=== PATIENT | female | born 1955 | race Caucasian/White ===

== ENCOUNTER 2017-07-06 10:16 | Emergency (ER) | payer OTHER ==
[~2017-07-06] VITALS: Ht 172.7 cm; Wt 81.7 kg
[~2017-07-06 10:16] MED LIST: ASPI325EC PO; DIGO.125 PO; LEVSOD100 PO; METO50 PO; MYCO250 PO; OMEP40CA12 PO; PARO20 PO; PRED5 PO; TRAZ50 PO; VALS80 PO
[2017-07-06] MEDS ORDERED: XARELTO20 MG PO (11:37)
[2017-07-06] MEDS ORDERED: ATOR20 PO (11:37)
[2017-07-06 11:47] LABS: BASOPHILS ABSOLUTE AUTO 0.03 K/mm3 (0.00-0.23); BASOPHILS PERCENT AUTO 0 % (0-2); EOSINOPHILS ABSOLUTE AUTO 0.03 K/mm3 (0.00-0.68); EOSINOPHILS PERCENT AUTO 0 % (0-6); Hematocrit 40.6 % (33.0-51.0); Hemoglobin 13.2 g/dL (11.5-16.0); IMMATURE GRAN ABSOLUTE AUTO 0.02 K/mm3 (0.00-0.10); IMMATURE GRAN PERCENT AUTO 0 % (0-1); LYMPHOCYTES PERCENT AUTO 16 % (21-46); MONOCYTES ABSOLUTE AUTO 0.68 K/mm3 (0.16-1.47); MONOCYTES PERCENT AUTO 10 % (4-13); Mean Corpuscular HGB 29.7 pg (26.0-34.0); Mean Corpuscular HGB Conc 32.5 g/dL (31.5-36.5); Mean Corpuscular Volume 91 fL (80-100); Mean Platelet Volume 11.9 fL (9.1-12.4); NEUTROPHILS ABSOLUTE AUTO 5.21 K/mm3 (1.96-9.15); NEUTROPHILS PERCENT AUTO 74 % (41-73); Platelet Count 172 K/mm3 (150-400); RDW Coefficient Variation 13.1 % (11.7-14.2); Red Blood Cell Count 4.44 M/mm3 (3.80-5.20); White Blood Cell Count 7.07 K/mm3 (4.00-11.30)
[2017-07-06 11:59] LABS: International Normalized Ratio 1.14; Prothrombin Time Results 11.9 Sec (9.7-11.5)
[2017-07-06 12:08] LABS: Alanine Aminotransfer (ALT/SGP 12 U/L (12-78); Albumin, Blood 3.6 g/dL (3.4-5.0); Alk Phos 55 U/L (50-136); Anion Gap 9 mmol/L (6-16); Aspartate Aminotrans (AST/SGOT 5 U/L (12-37); Bilirubin, Total 0.5 mg/dL (0.1-1.0); Blood Urea Nitrogen 10 mg/dL (8-24); Bun/Creatinine Ratio 11.7 (12.0-20.0); CO2, Blood 23 mmol/L (21-32); Calcium, Blood 8.9 mg/dL (8.5-10.1); Chloride, Blood 110 mmol/L (98-108); Creatinine, Blood 0.86 mg/dL (0.40-1.00); Globulin, Blood 3.7 g/dL (2.2-4.0); Glomerular Filtration Rate >60 (60-); Glucose, Blood 101 mg/dL (70-99); Potassium, Blood 3.8 mmol/L (3.5-5.5); Sodium, Blood 142 mmol/L (136-145); Total Protein, Blood 7.3 g/dL (6.4-8.2)
[2017-08-10] MEDS ORDERED: Flecainide Acet50 MG PO (09:29)
== END 2017-07-06 12:23 | disposition short-term general hospital (02) ==
LOC: ER 10:16
PROVIDERS: Emergency Medicine
DX: S06.5X9A Traumatic subdural hemorrhage with loss of consciousness of unspecified duration, initial encounter (principal); I77.89 Other specified disorders of arteries and arterioles; Z79.899 Other long term (current) drug therapy; Z79.82 Long term (current) use of aspirin; K21.9 Gastro-esophageal reflux disease without esophagitis; W19.XXXA Unspecified fall, initial encounter
CPT/HCPCS: 36415; 70450; 80053; 85025; 85610; 85730; 93005; 93010; 96365; 99285; J1953

== ENCOUNTER → 2017-08-05 | Outpatient (CLI) | payer OTHER ==
[~2017-08-05] MED LIST changes: +ATOR20 PO; +Flecainide Acet50 MG PO; +XARELTO20 MG PO
== END | disposition home or self-care (01) ==
LOC: LAB 13:36 → LAB SHORT 13:36
DX: R30.0 Dysuria (principal)
CPT/HCPCS: 87077; 87086; 87186

== ENCOUNTER 2017-10-10 11:03 | Emergency (ER) | payer OTHER ==
[~2017-10-10] VITALS: Ht 165.1 cm; Wt 68.0 kg
[2017-10-10] MEDS ORDERED: ZADITOR5 ML LEFTEYE (11:32)
== END 2017-10-10 11:51 | disposition home or self-care (01) ==
LOC: ER 11:03
DX: H10.12 Acute atopic conjunctivitis, left eye (principal); I48.91 Unspecified atrial fibrillation; K21.9 Gastro-esophageal reflux disease without esophagitis; Z87.891 Personal history of nicotine dependence; Z88.8 Allergy status to other drugs, medicaments and biological substances; Z79.899 Other long term (current) drug therapy
CPT/HCPCS: 99282

== ENCOUNTER 2019-01-26 15:04 | Observation (INO) | payer MEDICARE ==
[~2019-01-26] VITALS: Ht 172.7 cm; Wt 85.5 kg
[~2019-01-26 15:04] MED LIST changes: +ZADITOR5 ML LEFTEYE
[2019-01-26 15:50] LABS: BASOPHILS ABSOLUTE AUTO 0.07 K/mm3 (0.00-0.23); BASOPHILS PERCENT AUTO 1 % (0-2); EOSINOPHILS ABSOLUTE AUTO 0.04 K/mm3 (0.00-0.68); EOSINOPHILS PERCENT AUTO 1 % (0-6); Hematocrit 44.2 % (33.0-51.0); Hemoglobin 14.4 g/dL (11.5-16.0); IMMATURE GRAN ABSOLUTE AUTO 0.02 K/mm3 (0.00-0.10); IMMATURE GRAN PERCENT AUTO 0 % (0-1); LYMPHOCYTES ABSOLUTE AUTO 1.42 K/mm3 (0.84-5.20); LYMPHOCYTES PERCENT AUTO 17 % (21-46); MONOCYTES PERCENT AUTO 8 % (4-13); Mean Corpuscular HGB 31.2 pg (26.0-34.0); Mean Corpuscular HGB Conc 32.6 g/dL (31.5-36.5); Mean Corpuscular Volume 96 fL (80-100); Mean Platelet Volume 11.8 fL (9.1-12.4); NEUTROPHILS ABSOLUTE AUTO 6.04 K/mm3 (1.96-9.15); NEUTROPHILS PERCENT AUTO 73 % (41-73); Platelet Count 201 K/mm3 (150-400); RDW Coefficient Variation 13.1 % (11.7-14.2); RDW Standard Deviation 46.4 fL (35.1-46.3); Red Blood Cell Count 4.62 M/mm3 (3.80-5.20); White Blood Cell Count 8.29 K/mm3 (4.00-11.30)
[2019-01-26 16:06] LABS: Alanine Aminotransfer (ALT/SGP 16 U/L (12-78); Albumin, Blood 3.9 g/dL (3.4-5.0); Albumin/Globulin Ratio 1.2 (0.8-1.8); Alk Phos 54 U/L (50-136); Anion Gap 7 mmol/L (6-16); Aspartate Aminotrans (AST/SGOT 18 U/L (12-37); Bilirubin, Total 0.7 mg/dL (0.1-1.0); Blood Urea Nitrogen 20 mg/dL (8-24); CO2, Blood 24 mmol/L (21-32); Calcium, Blood 8.8 mg/dL (8.5-10.1); Chloride, Blood 109 mmol/L (98-108); Globulin, Blood 3.3 g/dL (2.2-4.0); Glomerular Filtration Rate 59 (60-); Glucose, Blood 95 mg/dL (70-99); Potassium, Blood 3.5 mmol/L (3.5-5.5); Sodium, Blood 140 mmol/L (136-145); Total Protein, Blood 7.2 g/dL (6.4-8.2); Troponin I <0.015 ng/mL (0.000-0.040)
[2019-01-26] MEDS ORDERED: ELIQUIS5 MG PO (20:59)
[2019-01-26] MEDS ORDERED: Tambocor100 MG (20:59)
[2019-01-26] MEDS ORDERED: TELM80 PO (21:00)
[2019-01-26] MEDS ORDERED: MYCO250 PO (21:00)
[2019-01-26] MEDS ORDERED: LEVSOD100 PO (21:00)
[2019-01-26] MEDS ORDERED: METO25ER (21:00)
[2019-01-26] MEDS ORDERED: ALPR.25 PO (21:47)
[2019-01-26] MEDS ORDERED: METOPROLOL SUCC25 MG PO (21:48)
--- NOTE | 2019-01-26 21:48 | NUR ---
RECIEVED REPORT FROM ANDRE BALTAZAR. PER REPORT, PT TOOK PM HOME MEDS ALREADY.
--- NOTE | 2019-01-26 22:15 | NUR ---
ADMISSION NOTE PT ARRIVED TO UNIT VIA STRETCHER, AMBULATES INDEPENDENTLY TO BED. PT IS A&OX4. REPORTS CHEST PAIN A BURNING SENSATION, STATES IT IS MORE LIKE REFLUX. TELE IN PLACE; SINUS [place] AT 49. PT REPORTS SHE NORMALLY RUNS IN THE 40-60s. ASYMPTOMATIC. ASSUMING CARE OF PT.
--- NOTE | 2019-01-27 04:56 | NUR ---
SHIFT SUMMARY PT REPORTS CP IS MORE LIKE A BURNING FEELING SIMILAR TO REFLUX, SPECIFICALLY LOCATED TO THE L CHEST AND OCCASIONALLY TRAVELS TO THE L ARM/JAW. TELE IN PLACE; PT SINUS KIMBER[place] IN THE 40s. PT STATES THIS NORMAL FOR HER, ASYMPTOMATIC. MD AWARE. INDEPEDENT IN RM. TROPONINS NEG. DENIES N/V/D. REPORTS CP THIS AM HAS SIGNFICANTLY IMPROVED. WILL CONT TO MONITOR AND PROVIDE CARE UNTIL PRESUMED BY ONCOMING RN.
[2019-01-27] MEDS ORDERED: LOW DOSE ASPIRI81 MG PO (10:21)
[2019-01-27] MEDS ORDERED: ATOR40TA (10:22)
--- NOTE | 2019-01-27 11:37 | NUR ---
DISCHARGE PT DISCHARGED TO HOME. THIS RN EXPLAINED DISCHARGE INSTRUCTIONS AND MEDICATIONS TO PT AND SHE REPORTS SHE UNDERSTANDS. MEDICATIONS FAXED TO [facility]. IV REMOVED WITHOUT DIFFICULTY. PT INDEPENDENT TO PRIVATE VEHICLE. PT'S BELONGINGS WITH PT AND SPOUSE.
== END 2019-01-27 11:20 | disposition home or self-care (01) ==
LOC: ER 15:04 → MEDS 21:02 → ENPENDDIS 01-27 10:35 → MEDS 01-27 11:20
PROVIDERS: Physician Assistant; ADMIT Hospitalist
DX: R07.9 Chest pain, unspecified (principal); I48.0 Paroxysmal atrial fibrillation; I10 Essential (primary) hypertension; E78.5 Hyperlipidemia, unspecified; E03.9 Hypothyroidism, unspecified; Z87.891 Personal history of nicotine dependence; Z88.8 Allergy status to other drugs, medicaments and biological substances; Z79.899 Other long term (current) drug therapy; Z79.02 Long term (current) use of antithrombotics/antiplatelets
CPT/HCPCS: 36415; 71046; 80053; 84484; 85025; 93005; 93010; 99285-25; G0378; J7517

== ENCOUNTER → 2020-06-21 | Outpatient (CLI) | payer MEDICARE, BC ==
[~2020-06-21] MED LIST changes: +ALPR.25 PO; +ATOR40TA; +ELIQUIS5 MG PO; +LOW DOSE ASPIRI81 MG PO; +METO25ER; +METOPROLOL SUCC25 MG PO; +TELM80 PO; +Tambocor100 MG
[2020-06-21 19:33] LABS: BASOPHILS ABSOLUTE AUTO 0.07 K/mm3 (0.00-0.23); BASOPHILS PERCENT AUTO 1 % (0-2); EOSINOPHILS ABSOLUTE AUTO 0.06 K/mm3 (0.00-0.68); EOSINOPHILS PERCENT AUTO 1 % (0-6); Hematocrit 42.4 % (33.0-51.0); Hemoglobin 13.8 g/dL (11.5-16.0); IMMATURE GRAN ABSOLUTE AUTO 0.01 K/mm3 (0.00-0.10); IMMATURE GRAN PERCENT AUTO 0 % (0-1); LYMPHOCYTES ABSOLUTE AUTO 1.48 K/mm3 (0.84-5.20); LYMPHOCYTES PERCENT AUTO 22 % (21-46); MONOCYTES ABSOLUTE AUTO 0.89 K/mm3 (0.16-1.47); MONOCYTES PERCENT AUTO 13 % (4-13); Mean Corpuscular HGB 30.9 pg (26.0-34.0); Mean Corpuscular HGB Conc 32.5 g/dL (31.5-36.5); Mean Corpuscular Volume 95 fL (80-100); Mean Platelet Volume 12.6 fL (9.1-12.4); NEUTROPHILS ABSOLUTE AUTO 4.27 K/mm3 (1.96-9.15); NEUTROPHILS PERCENT AUTO 63 % (41-73); Platelet Count 203 K/mm3 (150-400); RDW Coefficient Variation 13.3 % (11.7-14.2); RDW Standard Deviation 46.4 fL (35.1-46.3); Red Blood Cell Count 4.47 M/mm3 (3.80-5.20); White Blood Cell Count 6.78 K/mm3 (4.00-11.30)
== END | disposition home or self-care (01) ==
LOC: LAB SHORT 18:44 → PLD 18:44
PROVIDERS: Hospitalist
DX: R19.5 Other fecal abnormalities (principal)
CPT/HCPCS: 85025

== ENCOUNTER → 2020-11-05 | Outpatient (CLI) | payer MEDICARE, BC | END | disposition home or self-care (01) | LOC: LAB SHORT 17:20 → LAB 17:20 | DX: R68.84 Jaw pain (principal) | CPT/HCPCS: 85651 ==

== ENCOUNTER → 2021-10-15 | Outpatient (CLI) | payer MEDICARE, BC ==
[2021-10-15 17:48] LABS: BASOPHILS ABSOLUTE AUTO 0.06 K/mm3 (0.00-0.23); BASOPHILS PERCENT AUTO 1 % (0-2); EOSINOPHILS ABSOLUTE AUTO 0.06 K/mm3 (0.00-0.68); EOSINOPHILS PERCENT AUTO 1 % (0-6); Hematocrit 37.5 % (33.0-51.0); Hemoglobin 11.8 g/dL (11.5-16.0); IMMATURE GRAN ABSOLUTE AUTO 0.01 K/mm3 (0.00-0.10); IMMATURE GRAN PERCENT AUTO 0 % (0-1); LYMPHOCYTES ABSOLUTE AUTO 1.07 K/mm3 (0.84-5.20); LYMPHOCYTES PERCENT AUTO 16 % (21-46); MONOCYTES ABSOLUTE AUTO 0.81 K/mm3 (0.16-1.47); MONOCYTES PERCENT AUTO 12 % (4-13); Mean Corpuscular HGB Conc 31.5 g/dL (31.5-36.5); Mean Corpuscular Volume 98 fL (80-100); NEUTROPHILS PERCENT AUTO 69 % (41-73); Platelet Count 308 K/mm3 (150-400); RDW Coefficient Variation 14.3 % (11.7-14.2); RDW Standard Deviation 51.6 fL (35.1-46.3); Red Blood Cell Count 3.81 M/mm3 (3.80-5.20); White Blood Cell Count 6.51 K/mm3 (4.00-11.30)
[2021-10-15 18:21] LABS: Albumin, Blood 3.4 g/dL (3.4-5.0); Albumin/Globulin Ratio 1.1 (0.8-1.8); Bilirubin, Total 0.3 mg/dL (0.1-1.0); Bun/Creatinine Ratio 18.5 (12.0-20.0); Calcium, Blood 8.9 mg/dL (8.5-10.1); Creatinine, Blood 1.08 mg/dL (0.40-1.00); Globulin, Blood 3.2 g/dL (2.2-4.0); Thyroid Stimulating Hormone 4.57 uIU/mL (0.360-4.800); Total Protein, Blood 6.6 g/dL (6.4-8.2)
== END | disposition home or self-care (01) ==
LOC: LAB 15:10 → LAB SHORT 15:10
PROVIDERS: Hospitalist
DX: R51.9 Headache, unspecified (principal); E03.9 Hypothyroidism, unspecified
CPT/HCPCS: 80053; 84443; 85025; 85651

== ENCOUNTER → 2022-05-01 | Outpatient (CLI) | payer MEDICARE, BC ==
[2022-05-01 19:11] LABS: Free Thyroxine 1.14 ng/dL (0.70-1.60)
[2022-05-01 19:14] LABS: Thyroid Stimulating Hormone 6.8 uIU/mL (0.360-4.800); Triiodothyronine, Free 2.18 pg/mL (2.18-3.98)
== END | disposition home or self-care (01) ==
LOC: LAB SHORT 11:00
PROVIDERS: Hospitalist
DX: E03.9 Hypothyroidism, unspecified (principal)
CPT/HCPCS: 84439; 84443; 84481

== ENCOUNTER 2022-12-18 15:28 | Emergency (ER) | payer MEDICARE, BC ==
[~2022-12-18] VITALS: Ht 172.7 cm; Wt 81.7 kg
[2022-12-18 16:01] VITALS: BP 150/103
== END 2022-12-18 16:44 | disposition left against medical advice (07) ==
LOC: ER 15:28
DX: R10.84 Generalized abdominal pain (principal); K59.00 Constipation, unspecified; Z53.29 Procedure and treatment not carried out because of patient's decision for other reasons; K21.9 Gastro-esophageal reflux disease without esophagitis; I48.91 Unspecified atrial fibrillation; I10 Essential (primary) hypertension; N18.9 Chronic kidney disease, unspecified; D89.89 Other specified disorders involving the immune mechanism, not elsewhere classified; Z87.891 Personal history of nicotine dependence; Z88.8 Allergy status to other drugs, medicaments and biological substances; Z79.899 Other long term (current) drug therapy; Z79.01 Long term (current) use of anticoagulants
CPT/HCPCS: 99281; A9270

== ENCOUNTER → 2023-08-14 | Outpatient (CLI) | payer MEDICARE, BC ==
[2023-08-14 15:28] LABS: BASOPHILS ABSOLUTE AUTO 0.07 K/mm3 (0.00-0.23); BASOPHILS PERCENT AUTO 2 % (0-2); EOSINOPHILS ABSOLUTE AUTO 0.08 K/mm3 (0.00-0.68); EOSINOPHILS PERCENT AUTO 2 % (0-6); Hematocrit 45.8 % (33.0-51.0); Hemoglobin 14.7 g/dL (11.5-16.0); IMMATURE GRAN ABSOLUTE AUTO 0.01 K/mm3 (0.00-0.10); IMMATURE GRAN PERCENT AUTO 0 % (0-1); LYMPHOCYTES ABSOLUTE AUTO 0.86 K/mm3 (0.84-5.20); LYMPHOCYTES PERCENT AUTO 21 % (21-46); MONOCYTES ABSOLUTE AUTO 0.43 K/mm3 (0.16-1.47); MONOCYTES PERCENT AUTO 10 % (4-13); Mean Corpuscular HGB Conc 32.1 g/dL (31.5-36.5); Mean Corpuscular Volume 97 fL (80-100); NEUTROPHILS ABSOLUTE AUTO 2.73 K/mm3 (1.96-9.15); NEUTROPHILS PERCENT AUTO 65 % (41-73); Platelet Count 248 K/mm3 (150-400); RDW Coefficient Variation 13.2 % (11.7-14.2); RDW Standard Deviation 47.2 fL (35.1-46.3); Red Blood Cell Count 4.74 M/mm3 (3.80-5.20); White Blood Cell Count 4.18 K/mm3 (4.00-11.30)
[2023-08-14 15:51] LABS: Free Thyroxine 1.12 ng/dL (0.70-1.60)
[2023-08-14 15:52] LABS: Bun/Creatinine Ratio 23.3 (12.0-20.0); Calcium, Blood 9.3 mg/dL (8.5-10.1); Creatinine, Blood 1.03 mg/dL (0.40-1.00); Potassium, Blood 4.3 mmol/L (3.5-5.5); Thyroid Stimulating Hormone 2.54 uIU/mL (0.360-4.800)
== END | disposition home or self-care (01) ==
LOC: LAB SHORT 14:04 → LAB 14:04
PROVIDERS: Hospitalist
DX: N18.31 Chronic kidney disease, stage 3a (principal); E03.9 Hypothyroidism, unspecified
CPT/HCPCS: 80048; 83970; 84439; 84443; 85025

== ENCOUNTER 2024-01-19 17:27 | Emergency (ER) | payer MEDICARE, BC ==
[~2024-01-19] VITALS: Ht 172.7 cm; Wt 85.3 kg
[2024-01-19] MEDS ORDERED: Ondansetron HCl 2 MG / ML 2ML Vial IV ONE (17:35)
[2024-01-19] MEDS ORDERED: Ketorolac Tromethamine 15mg Vial IV ONE (17:35)
[2024-01-19 17:57] LABS: BASOPHILS ABSOLUTE AUTO 0.03 K/mm3 (0.00-0.23); BASOPHILS PERCENT AUTO 0 % (0-2); EOSINOPHILS PERCENT AUTO 0 % (0-6); Hemoglobin 13.9 g/dL (11.5-16.0); IMMATURE GRAN ABSOLUTE AUTO 0.02 K/mm3 (0.00-0.10); IMMATURE GRAN PERCENT AUTO 0 % (0-1); LYMPHOCYTES ABSOLUTE AUTO 0.36 K/mm3 (0.84-5.20); LYMPHOCYTES PERCENT AUTO 3 % (21-46); MONOCYTES ABSOLUTE AUTO 0.75 K/mm3 (0.16-1.47); MONOCYTES PERCENT AUTO 7 % (4-13); Mean Corpuscular HGB 32.2 pg (26.0-34.0); Mean Corpuscular HGB Conc 33.1 g/dL (31.5-36.5); Mean Corpuscular Volume 97 fL (80-100); Mean Platelet Volume 11.1 fL (9.1-12.4); NEUTROPHILS ABSOLUTE AUTO 9.46 K/mm3 (1.96-9.15); NEUTROPHILS PERCENT AUTO 89 % (41-73); Platelet Count 180 K/mm3 (150-400); RDW Standard Deviation 50.1 fL (35.1-46.3); Red Blood Cell Count 4.32 M/mm3 (3.80-5.20); White Blood Cell Count 10.62 K/mm3 (4.00-11.30)
[2024-01-19 18:13] LABS: Albumin, Blood 3.8 g/dL (3.4-5.0); Albumin/Globulin Ratio 1.1 (0.8-1.8); Bun/Creatinine Ratio 20.8 (12.0-20.0); Calcium, Blood 8.9 mg/dL (8.5-10.1); Creatinine, Blood 1.06 mg/dL (0.40-1.00); Globulin, Blood 3.4 g/dL (2.2-4.0); Potassium, Blood 4.1 mmol/L (3.5-5.5); Total Protein, Blood 7.2 g/dL (6.4-8.2)
[2024-01-19 20:11] LABS: Source, Urine Clean Catch
[2024-01-19 20:15] LABS: Appearance, Urine Clear (Clear); Bilirubin, Urine Neg (Neg); Blood, Urine 3+ (Neg); Color, Urine Yellow (P-Yellow); Glucose Qualitative, Urine Neg (Neg); Ketones, Urine 3+ (Neg); Leukocyte Esterase, Urine Neg (Neg); Nitrite, Urine Neg (Neg); Protein, Urine 2+ (Neg); Urobilinogen, Urine NORM (Normal)
[2024-01-19 20:23] LABS: Bacteria Few /hpf; Hyaline Casts 0-2 /lpf (0-2); Squamous Epithelial Cells Rare /hpf (Few); White Blood Cells, Urine 0-2 /hpf (0-5)
[2024-01-19] MEDS ORDERED: AMOCLA875 PO (21:20)
[2024-01-19] MEDS ORDERED: METR500 PO (21:20)
[2024-01-19 21:30] VITALS: BP 105/71
[2024-01-19] MEDS ORDERED: MetroNIDAZOLE 500 MG Tab PO ONE (21:35)
[2024-01-19] MEDS ORDERED: Amoxicillin/Clavulanate K 875 MG Tab PO ONE (21:35)
[2024-01-19] MEDS ORDERED: Acetaminophen 500 MG Tab PO ONE (21:50)
== END 2024-01-19 22:03 | disposition home or self-care (01) ==
LOC: ER 17:27
PROVIDERS: Physician Assistant
DX: K57.32 Diverticulitis of large intestine without perforation or abscess without bleeding (principal); I48.91 Unspecified atrial fibrillation; K21.9 Gastro-esophageal reflux disease without esophagitis; Z87.891 Personal history of nicotine dependence; Z88.8 Allergy status to other drugs, medicaments and biological substances
CPT/HCPCS: 74177; 80053; 81001; 83690; 85025; 96374-59; 99284-25; A9270; J2405; Q9967

== ENCOUNTER 2024-01-23 20:08 | Inpatient (IN) | payer MEDICARE, BC ==
[~2024-01-23] VITALS: Ht 172.7 cm; Wt 90.2 kg
[~2024-01-23 20:08] MED LIST changes: +AMOCLA875 PO; +METR500 PO
[2024-01-23 20:36] LABS: BASOPHILS ABSOLUTE AUTO 0.07 K/mm3 (0.00-0.23); BASOPHILS PERCENT AUTO 1 % (0-2); EOSINOPHILS ABSOLUTE AUTO 0.08 K/mm3 (0.00-0.68); EOSINOPHILS PERCENT AUTO 1 % (0-6); Hematocrit 41.5 % (33.0-51.0); Hemoglobin 14.3 g/dL (11.5-16.0); IMMATURE GRAN ABSOLUTE AUTO 0.13 K/mm3 (0.00-0.10); IMMATURE GRAN PERCENT AUTO 1 % (0-1); LYMPHOCYTES ABSOLUTE AUTO 0.55 K/mm3 (0.84-5.20); LYMPHOCYTES PERCENT AUTO 4 % (21-46); MONOCYTES ABSOLUTE AUTO 1.39 K/mm3 (0.16-1.47); MONOCYTES PERCENT AUTO 11 % (4-13); Mean Corpuscular HGB 32.4 pg (26.0-34.0); Mean Corpuscular HGB Conc 34.5 g/dL (31.5-36.5); Mean Corpuscular Volume 94 fL (80-100); Mean Platelet Volume 10.7 fL (9.1-12.4); NEUTROPHILS ABSOLUTE AUTO 10.52 K/mm3 (1.96-9.15); NEUTROPHILS PERCENT AUTO 83 % (41-73); Platelet Count 251 K/mm3 (150-400); RDW Coefficient Variation 13.5 % (11.7-14.2); Red Blood Cell Count 4.42 M/mm3 (3.80-5.20); White Blood Cell Count 12.74 K/mm3 (4.00-11.30)
[2024-01-23 20:57] LABS: Albumin, Blood 2.6 g/dL (3.4-5.0); Albumin/Globulin Ratio 0.7 (0.8-1.8); Bilirubin, Total 0.5 mg/dL (0.1-1.0); Bun/Creatinine Ratio 16.7 (12.0-20.0); Calcium, Blood 8.5 mg/dL (8.5-10.1); Creatinine, Blood 1.02 mg/dL (0.40-1.00); Globulin, Blood 3.8 g/dL (2.2-4.0); Potassium, Blood 3.6 mmol/L (3.5-5.5); Total Protein, Blood 6.4 g/dL (6.4-8.2)
[2024-01-23] MEDS ORDERED: CATAPRES0.1 MG PO (22:56)
[2024-01-23 23:21] LABS: Magnesium, Blood 1.8 mg/dL (1.6-2.4)
[2024-01-23] MEDS ORDERED: Lactated Ringer's 1,000 ML IV SCH (23:40)
[2024-01-23] MEDS ORDERED: HYDROmorphone HCl/Pf 1MG SYR IV ONE (23:40)
[2024-01-24] VITALS (38 sets, daily range): BP systolic 103–154; BP diastolic 84–138
[2024-01-24 00:07] LABS: Source, Urine Clean Catch
[2024-01-24 00:18] LABS: Appearance, Urine Clear (Clear); Bilirubin, Urine Neg (Neg); Blood, Urine 3+ (Neg); Color, Urine Yellow (P-Yellow); Glucose Qualitative, Urine Neg (Neg); Ketones, Urine Neg (Neg); Leukocyte Esterase, Urine 1+ (Neg); Nitrite, Urine Neg (Neg); Protein, Urine 1+ (Neg); Urobilinogen, Urine NORM (Normal)
[2024-01-24] MEDS ORDERED: Piperacillin/Tazobactam Sod 3.375 GM in NS 100 ML IV ONE (00:25)
[2024-01-24 00:35] LABS: Bacteria Few /hpf; Red Blood Cells, Urine 0-2 /hpf (0-2); Squamous Epithelial Cells Few /hpf (Few); White Blood Cells, Urine 0-2 /hpf (0-5)
[2024-01-24] MEDS ORDERED: Pantoprazole Sodium 40 MG Injection IV ONE (04:55)
[2024-01-24] MEDS ORDERED: HYDROmorphone HCl/Pf 1MG SYR IV ONE (05:20)
[2024-01-24] MEDS ORDERED: Acetaminophen 325 MG TABLET PO PRN (05:30)
[2024-01-24] MEDS ORDERED: HYDROmorphone HCl/Pf 1MG SYR IV PRN (05:30)
[2024-01-24] MEDS ORDERED: FLU VACC TS2024-25(6MOS UP)/PF 45 MCG/0.5 ML SYRINGE IM ONE (05:30)
[2024-01-24] MEDS ORDERED: Naloxone HCl 0.4MG / ML 1ML Vial IV PRN (05:35)
[2024-01-24] MEDS ORDERED: Acetaminophen 650 MG Supp PR PRN (05:35)
[2024-01-24] MEDS ORDERED: Ondansetron HCl 2 MG / ML 2ML Vial IV PRN (05:35)
[2024-01-24] MEDS ORDERED: Lactated Ringer's 1,000 ML IV SCH (06:00)
[2024-01-24] MEDS ORDERED: Mag Sulfate 1 GM/D5% 100ML 100 ML IV STA (06:31)
[2024-01-24] MEDS ORDERED: Potassium Chl 20MEQ/Water100ML 100 ML IV SCH (06:35)
[2024-01-24] MEDS ORDERED: ALPRAZolam 0.5 MG Tab PO ONE (07:35)
[2024-01-24] MEDS ORDERED: METOPROLOL TARTRATE IV SCH (08:00)
[2024-01-24] MEDS ORDERED: Metoprolol Tartrate 1 MG/ML 5 ML VIAL IV ONE (08:00)
[2024-01-24] MEDS ORDERED: Piperacillin/Tazobactam Sod 3.375 GM in NS 100 ML IV SCH (08:00)
[2024-01-24] MEDS ORDERED: Metoprolol Tartrate 1 MG/ML 5 ML VIAL IV PRN (08:10)
[2024-01-24] MEDS ORDERED: Docusate Sodium 100 MG Cap PO SCH (09:00)
[2024-01-24] MEDS ORDERED: Lactobacil 2-S.Thermo-Bifido 1 1 Cap PO SCH (09:00)
--- NOTE | 2024-01-24 10:00 | NUR ---
AM NOTE: PATIENT ALERT AND ORIENTED X4. ABLE TO MOVE ALL EXTREMITIES. DENIES NUMBNESS/TINGLING. ABLE TO COMMUNICATE NEEDS CLEARLY. DAUGHTER JULIANA AT BEDSIDE. RICHY. TELE SHOWING AFIB WITH OCCASIONAL V PACED COMPLEXES. HR 80-90'S. SBP 130-160'S. PPP. NO EDEMA NOTED. EKG COMPLETED THIS AM AND IN CHART. DR. HILL TO BEDSIDE. ORDERS TO DC AMIO GTT AND TO START METOPROLOL GTT AT 10MG/HR (HOLD FOR SBP LESS THAN 100). WITH A INITIAL BOLUS OF 15 MG IV METOPROLOL PRIOR TO GTT. SEE DOCUMENTED BLOOD PRESSURES. IV KCL AND MAG INFUSED THIS AM. LR INFUSING PER EMAR FOR A TOTAL OF 2 BAGS. IV ABX INFUSED. SCD'S IN PLACE. ON ROOM AIR THIS AM SATING ABOVE 95%. LUNGS SOUNDS CLEAR. DENIES SOB/COUGH. PATIENT DESAT TO 89% WHILE SLEEPING. 2L NASAL CANNULA PLACED WHILE ASLEEP. DENIES COUGH. EVEN AND UNLABORED RESPIRTATIONS. BOWEL TONES PRESENT IN ALL 4 QUADRANTS. VERY TENDER TO LLQ WITH MODERATE DISTENTION. PAIN RELIEVED WITH IV PAIN MEDICATIONS. LAST BOWEL MOVEMENT ON 01/22. PATIENT DENIES ISSUES WITH URINATING. DR. POWER TO BEDSIDE. ORDERS FOR CLEAR LIQUID DIET AT THIS TIME. PATIENT TAKING SMALL SIPS OF WATER AND BROTH. HOME MED REC COMPLETED WITH HOME MEDICATION LIST BROUGHT IN BY DAUGHTER. SKIN C/D/I. CALL LIGHT IN REACH. DENIES NEEDS AT THIS TIME.
[2024-01-24] MEDS ORDERED: MYCO250 PO (12:17)
[2024-01-24] MEDS ORDERED: METO50ER PO (12:19)
--- NOTE | 2024-01-24 18:07 | NUR ---
SHIFT SUMMARY: PATIENT REMAINS ALERT AND ORIENTED. INTERMIT PAIN/NAUSEA RELIEVED WITH IV MEDICATION. DAUGHTER AT BEDSIDE. TELE REMAINS AFIB WITH VPACED COMPLEXES. BLOOD PRESSURE STABLE ON METOPROLOL GTT, SEE CHARTED VITALS. TOLERATING SMALL AMOUNTS OF CLEAR LIQUID AT THIS TIME. LR CONTINUES TO INFUSE PER EMAR. IV ABX INFUSED. UP TO BATHROOM WITH SBA. CALL LIGHT IN REACH. DENIES NEEDS.
[2024-01-24] MEDS ORDERED: Amiodarone HCl 50 MG / ML 3 ML Amp IV ONE (21:05)
[2024-01-24] MEDS ORDERED: NS 250 ML IV PRN (23:05)
[2024-01-25] VITALS (47 sets, daily range): BP systolic 98–147; BP diastolic 54–106
--- NOTE | 2024-01-25 06:12 | NUR ---
SHIFT SUMMARY NEURO: WNL CARDIAC: AV PACED AT A RATE OF 80 PER ASSESSMENT FINDING- PACER NOT INTEROGATED. BLE EDEMA, PULSES PRESENT THROUGHOUT. METOPROLOL GTT RUNNING, SYSTOLIC PARAMETER CHANGED PER LIZ. LUNGS: 1-2 L AFTER DILAUDID ADMINISTRATIONS. GI/: PT COMPLAINING OF NEW GAS LIKE PAIN IN ADDITION TO WRAPPING ABD PAIN. HYPERACTIVE BOWEL SOUNDS BUT NO OUTPUT. PT UNSURE IF PAIN IS WORSENING DT DILAUDID ADMINISTRATIONS BUT VISUALLY SEEMS TO BE IN SEVERE PAIN. PT REQUESTING CONSERVATIVE AMOUNTS OF PAIN RELIEF, DISPROPORTIONATELY LOW COMPARED TO FLACC SCALE. PT RESTED NO MORE THAN THREE HOURS THIS SHIFT.
--- NOTE | 2024-01-25 07:00 | NUR ---
LIZ NOTIFIED- PT STATES PACER IS SUPPOSED TO BE SET AT A RATE OF 60, HAS BEEN FIRING AT 80.
[2024-01-25 09:16] LABS: Bun/Creatinine Ratio 14.2 (12.0-20.0); Calcium, Blood 8.5 mg/dL (8.5-10.1); Creatinine, Blood 0.85 mg/dL (0.40-1.00); Potassium, Blood 4.8 mmol/L (3.5-5.5)
[2024-01-25 09:24] LABS: BASOPHILS PERCENT AUTO 1 % (0-2); EOSINOPHILS ABSOLUTE AUTO 0.19 K/mm3 (0.00-0.68); EOSINOPHILS PERCENT AUTO 2 % (0-6); Hematocrit 45.9 % (33.0-51.0); Hemoglobin 15.3 g/dL (11.5-16.0); IMMATURE GRAN PERCENT AUTO 3 % (0-1); LYMPHOCYTES ABSOLUTE AUTO 0.82 K/mm3 (0.84-5.20); LYMPHOCYTES PERCENT AUTO 7 % (21-46); MONOCYTES ABSOLUTE AUTO 1.58 K/mm3 (0.16-1.47); MONOCYTES PERCENT AUTO 14 % (4-13); Mean Corpuscular HGB 32.3 pg (26.0-34.0); Mean Corpuscular HGB Conc 33.3 g/dL (31.5-36.5); Mean Corpuscular Volume 97 fL (80-100); Mean Platelet Volume 9.9 fL (9.1-12.4); NEUTROPHILS ABSOLUTE AUTO 8.57 K/mm3 (1.96-9.15); NEUTROPHILS PERCENT AUTO 74 % (41-73); Platelet Count 288 K/mm3 (150-400); RDW Coefficient Variation 14.1 % (11.7-14.2); RDW Standard Deviation 50.6 fL (35.1-46.3); Red Blood Cell Count 4.74 M/mm3 (3.80-5.20); White Blood Cell Count 11.66 K/mm3 (4.00-11.30)
[2024-01-25] MEDS ORDERED: Levothyroxine Sodium 0.137 MG Tab PO SCH (11:15)
--- NOTE | 2024-01-25 13:02 | NUR ---
[facility] TO THE ROOM TO INTEROGATE PACEMAKER. WHEN REVIEWING HOME MEDICATIONS THE PT WAS NOTED TO BE ON ELIQUIS 5MG BID. SINCE THE PT WAS ABLE TO TOLERATE PO MEDICATIONS TODAY, DR. HILL WAS CALLED ABOUT RESTARTING ELIQUIS D/T THE PT BEING IN AFIB. WHEN TALKING TO DR. MANRIQUE, HE STATED TO CALL THE SURGEON AND MAKE SURE THEY WERE AWARE OF BACTEREMIA AND TO LET HIM KNOW WE WERE GOING TO START IV HEPARIN UNTIL A FINAL DECISION WAS MADE ABOUT SURGERY OR NOT. DR. DOUGHERTY WAS CALLED AND STATED THE IV HEPARIN WAS FINE AND THAT HE HAS THE PT ON IV ABX ALREADY. HEPARIN CONSULT PLACED TO PHARMACY.
--- NOTE | 2024-01-25 13:08 | NUR ---
DR. ESTRADA CALLED THE UNIT AND LET US KNOW SHE WAS PUTTING IN A HEPARIN ORDER. HEPARIN CONSULT NOT PLACE BY THIS RN FROM DR. HILL ORDERS BECAUSE DR. ESTRADA STATED SHE WAS GOING TO PLACE IT HERSELF AND WAS ALREADY WORKING ON IT.
--- NOTE | 2024-01-25 13:18 | NUR ---
WHEN IN THE PT'S ROOM TO EDUCATED THE PT ON STARTING HEPARIN THE PT WAS FEELING OVERWHELMED BECAUSE SHE FEELS SHE HAVING TO ASK TO RESART HER HOME MEDICATIONS AND SHE IS ANXIOUS THAT THINGS ARE BEING MISSED. EDUCATION PROVDIED TO THE PT. SHE WAS REQUESTING SOMETHING FOR ANXIETY, AND STATED SHE WAS GIVEN SOMETHING THAT HELPED 01/23. DR. ESTRADA CALLED AND INFORMED OF THE PT'S ANXIETY AND REQUEST FOR ANXIETY MEDICATIONS. XANAX 0.5MG BIDP PLACED PER DR. ESTRADA. SEE NOTES FOR ANY UPDATES.
[2024-01-25] MEDS ORDERED: ALPRAZolam 0.5 MG Tab PO PRN (13:20)
[2024-01-25 16:25] LABS: Anti-Xa UFH, PHA Monitoring 0.24 IU/mL; International Normalized Ratio 1.05; Prothrombin Time Results 11.2 Sec (9.7-11.5)
[2024-01-25] MEDS ORDERED: Dose Adjust by Pharmacy XX STA (16:27)
[2024-01-25] MEDS ORDERED: Heparin Sodium,Porcine/0.5 NS 500 ML IV SCH (16:30)
--- NOTE | 2024-01-25 18:54 | NUR ---
shift summary Pt a&ox4. anxious. xanax given per emar this am. sp02>90% on ra. Telemetry shows v paced, afib, hr 80's-127. Carmen from [facility] center in room this shift to interrogate pacer. Cleared. metoprolol gtt infusing per emar. Hep gtt started per emar. Pt ambulated w/ sba to bathroom to void this shift. MD Martinez in room to assess. States improvement, keep observing and abx. Pt states no bm/gas today but bowel sounds hyperactive. Medicated for pain per emar. Powerglide placed in abigail. Family in room most of day. Daughter states mom has had trouble sleeping for the past few months. Asking for something to give to help her sleep. Call light in reach.
[2024-01-26] MEDS ORDERED: Dose Adjust by Pharmacy XX STA ×4 (01:38→23:22)
[2024-01-26 03:29] VITALS: BP 104/72
[2024-01-26 03:45] LABS: BASOPHILS ABSOLUTE AUTO 0.09 K/mm3 (0.00-0.23); BASOPHILS PERCENT AUTO 1 % (0-2); EOSINOPHILS ABSOLUTE AUTO 0.16 K/mm3 (0.00-0.68); EOSINOPHILS PERCENT AUTO 2 % (0-6); Hematocrit 38.4 % (33.0-51.0); Hemoglobin 12.8 g/dL (11.5-16.0); IMMATURE GRAN ABSOLUTE AUTO 0.28 K/mm3 (0.00-0.10); IMMATURE GRAN PERCENT AUTO 3 % (0-1); LYMPHOCYTES ABSOLUTE AUTO 1.21 K/mm3 (0.84-5.20); LYMPHOCYTES PERCENT AUTO 11 % (21-46); MONOCYTES ABSOLUTE AUTO 1.61 K/mm3 (0.16-1.47); MONOCYTES PERCENT AUTO 15 % (4-13); Mean Corpuscular HGB 32.2 pg (26.0-34.0); Mean Corpuscular HGB Conc 33.3 g/dL (31.5-36.5); Mean Corpuscular Volume 97 fL (80-100); Mean Platelet Volume 9.8 fL (9.1-12.4); NEUTROPHILS ABSOLUTE AUTO 7.65 K/mm3 (1.96-9.15); NEUTROPHILS PERCENT AUTO 70 % (41-73); Platelet Count 288 K/mm3 (150-400); RDW Coefficient Variation 14.2 % (11.7-14.2); RDW Standard Deviation 49.9 fL (35.1-46.3); Red Blood Cell Count 3.97 M/mm3 (3.80-5.20)
[2024-01-26 04:11] LABS: Magnesium, Blood 1.9 mg/dL (1.6-2.4)
[2024-01-26 04:13] LABS: Calcium, Blood 8.4 mg/dL (8.5-10.1); Potassium, Blood 4.8 mmol/L (3.5-5.5)
--- NOTE | 2024-01-26 06:32 | NUR ---
SHIFT SUMMARY PATIENT ALERT AND ORIENTED X4. MEDICATED PER EMAR FOR PAIN. HAD NO COMPLAINTS OF SHORTNESS OF BREATH. ON ROOM AIR WITH SPO2 >90%. VITAL SIGNS STABLE, CONTINUES ON METOPROLOL DRIP. AFIB WITH NO EVENTS ON TELE. NO ACUTE ISSUES NOTED OVERNIGHT. WILL CONTINUE TO MONITOR. CALL LIGHT WITHIN REACH.
[2024-01-26 08:08] VITALS: BP 128/87
[2024-01-26] MEDS ORDERED: Mag Sulfate 1 GM/D5% 100ML 100 ML IV SCH (08:30)
[2024-01-26] MEDS ORDERED: Calcium Carbonate 500 MG Tab Chew PO PRN (09:20)
[2024-01-26 11:06] VITALS: BP 106/79
[2024-01-26] MEDS ORDERED: Flecainide Acetate 100 MG Tab PO SCH (14:00)
[2024-01-26] MEDS ORDERED: Flecainide Acetate 100 MG Tab PO PRN (14:30)
--- NOTE | 2024-01-26 17:39 | NUR ---
ASSUMED CARE OF PT AT 0700 THIS AM. PT APPEARED TO BE DOING WELL TODAY. NO SURGERY AT THIS TIME PER DR POWER, CONTINUE TO MONITOR AND ABX. PT OOB 1 P SBA TO RESTROOM SEVERAL TIMES TODAY, PT ABLE TO HAVE BM X1. BOWEL TONES HYPERACTIVE. MEDICATED FOR PAIN PER MD ORDERS. HOME PO MEDICATIONS ADRESSED BY DR FAN AND METOPROLOL GTT D/C'D. HEPARIN GTT CONTINUES PER PHARMACY INSTRUCTIONS. POWERGLIDES TO BILATERAL UPPER ARMS REMAIN PATENT AND ABLE TO DRAW BLOOD. THIS RN ENCOURAGED PT TO AMBULATED AND BE OOB MUCH POSSIBLE TO INCREASE MOTILITY. PT HAS BEEN CALM AND COOPERATIVE WITH CARE, ABLE TO USE CALL LIGHT AND MAKE NEEDS KNOWN. WILL CONTINUE TO MONITOR AND GIVE REPORT TO NOC SHIFT RN.
[2024-01-26 19:40] VITALS: BP 135/98
[2024-01-26] MEDS ORDERED: Mycophenolate Mofetil 250 MG Cap PO SCH (21:00)
[2024-01-26 23:32] VITALS: BP 153/98
[2024-01-27 03:37] VITALS: BP 139/96
[2024-01-27 03:51] LABS: Hematocrit 38.3 % (33.0-51.0); Hemoglobin 12.7 g/dL (11.5-16.0); Mean Platelet Volume 9.7 fL (9.1-12.4); Platelet Count 303 K/mm3 (150-400)
--- NOTE | 2024-01-27 05:52 | NUR ---
SHIFT SUMMARY PATIENT ALERT AND ORINETED X4. MEDICATED PER EMAR FOR PAIN. HAD NO COMPLAINTS OF CHEST PAIN OR SHORTNESS OF BREATH. ON ROOM AIR WITH SPO2 >90%. TOLERATING FULL LIQUID DIET. VITAL SIGNS STABLE, AFIB ON TELE. NO ACUTE ISSUES NOTED OVERNIGHT. WILL CONTINUE TO MONITOR. CALL LIGHT WITHIN REACH.
[2024-01-27 08:17] VITALS: BP 132/89
[2024-01-27] MEDS ORDERED: Metoprolol Succinate 50 MG TABCR PO SCH ×2 (09:00)
[2024-01-27] MEDS ORDERED: Losartan Potassium 50 MG Tab PO SCH ×2 (09:00)
[2024-01-27 09:06] LABS: Free Thyroxine 1.25 ng/dL (0.70-1.60); Triiodothyronine, Free 1.16 pg/mL (2.18-3.98)
[2024-01-27 12:27] VITALS: BP 132/91
[2024-01-27] MEDS ORDERED: Dose Adjust by Pharmacy XX STA (12:28)
[2024-01-27 15:32] VITALS: BP 149/107
--- NOTE | 2024-01-27 17:17 | NUR ---
SHIFT SUMMARY PT A&Ox4, CALLS AND COMMUNICATES NEEDS APPROPRIATELY. BP STABLE, AFIB 110's UP TO 130's WITH ACTIVITY, DENIES CP/RPESSURE. SpO2> 92% RA, DENIES SOB. PT HAD 2 SMALL, LOOSE/MUCUS LIKE SEMI FORMED STOOLS. CONTINENT OF URINE, SBA FOR POLE MANAGMENT TO BATHROOM. PT WITH C/O MILD-MOD ABD PAIN, MANAGED PER EMAR. HEPARIN gtt INFUSING PER EMAR, MANAGED BY PHARMACY. NO OTHER EVENTS, WILL REPORT TO ONCOMING RN.
[2024-01-27 21:00] VITALS: BP 142/99
[2024-01-27 23:49] VITALS: BP 141/89
[2024-01-28] VITALS (7 sets, daily range): BP systolic 120–149; BP diastolic 86–110
[2024-01-28 04:17] LABS: BASOPHILS ABSOLUTE AUTO 0.06 K/mm3 (0.00-0.23); BASOPHILS PERCENT AUTO 1 % (0-2); EOSINOPHILS ABSOLUTE AUTO 0.07 K/mm3 (0.00-0.68); EOSINOPHILS PERCENT AUTO 1 % (0-6); Hematocrit 35.4 % (33.0-51.0); IMMATURE GRAN ABSOLUTE AUTO 0.18 K/mm3 (0.00-0.10); IMMATURE GRAN PERCENT AUTO 2 % (0-1); LYMPHOCYTES ABSOLUTE AUTO 0.74 K/mm3 (0.84-5.20); LYMPHOCYTES PERCENT AUTO 8 % (21-46); MONOCYTES ABSOLUTE AUTO 0.89 K/mm3 (0.16-1.47); MONOCYTES PERCENT AUTO 9 % (4-13); Mean Corpuscular HGB 32.2 pg (26.0-34.0); Mean Corpuscular HGB Conc 33.9 g/dL (31.5-36.5); Mean Corpuscular Volume 95 fL (80-100); Mean Platelet Volume 9.8 fL (9.1-12.4); NEUTROPHILS ABSOLUTE AUTO 7.52 K/mm3 (1.96-9.15); NEUTROPHILS PERCENT AUTO 80 % (41-73); Platelet Count 280 K/mm3 (150-400); RDW Standard Deviation 49.1 fL (35.1-46.3); Red Blood Cell Count 3.73 M/mm3 (3.80-5.20); White Blood Cell Count 9.46 K/mm3 (4.00-11.30)
--- NOTE | 2024-01-28 05:05 | NUR ---
SHIFT SUMMARY PATIENT ALERT AND ORIENTED X4. MEDICATED PER EMAR FOR PAIN. DENIES SHORTNESS OF BREATH OR CHEST PAIN. WAS ON ROOM AIR WITH SPO2 >90%. VITAL SIGNS STABLE, AFIB 110'S ON TELE, SOMETIMES SPIKES TO 120'S OR 130'S. NO ACUTE ISSUES NOTED OVERNIGHT. WILL CONTINUE TO MONITOR. CALL LIGHT WITHIN REACH.
[2024-01-28] MEDS ORDERED: Dose Adjust by Pharmacy XX STA ×2 (05:26→13:53)
[2024-01-28] MEDS ORDERED: Metoprolol Succinate 50 MG TABCR PO SCH ×2 (09:00→21:00)
[2024-01-28] MEDS ORDERED: Losartan Potassium 25 MG Tab PO SCH (09:00)
--- NOTE | 2024-01-28 14:18 | NUR ---
HEPARIN GTT CRITICAL PTT VALUE PER LAB. THIS RN NOTIFIED PHARMACY OF RESULT AND PHARMACY RECOMMENDED TO STOP HEP GTT FOR 1 HOUR AND RESTART WITH A NEW RATE PER ORDERS. HEPARIN GTT STOPPED AT 1352.
--- NOTE | 2024-01-28 17:05 | NUR ---
SHIFT SUMMARY PT REPORTS ABD PAIN IMPROVED. X1 IV DILAUDID GIVEN PER ORDERS. YAKELIN FULL LIQ DIET, DENIES N/V. REPORTS FLATUS AND HAD BM TODAY. SBA/INDEP IN ROOM. IV ABX + HEP GTT PER ORDERS. PT REMAINS IN AFIB WITH RATE IN THE 110S. PO METOPROLOL DOSE WAS INCREASED TODAY. PT EAGER TO DISCHARGE HOME. USES CALL LIGHT APPROPRIATELY.
--- NOTE | 2024-01-28 20:00 | NUR ---
ASSUMED CARE OF PT AT 1900. REPORT RECEIVED AT ROOM. PT PRESENTS IN BED. ALERT AND ORIENTED. SOMEWHAT ANXIOUS IN AFFECT. WAS ABLE TO EASE ANXIOUSNESS WITH SOOTHING CONVERSATION. ANSWERED QUESTIONS FOR PT. PT HAS BEEN UP TO BATHROOM. VOIDS Q.S. (QUANTITY SUFFICIENT) HAS SMALL BM. WILL REVIEW CHART AND PLAN OF CARE FOR THIS PT.
--- NOTE | 2024-01-28 23:12 | NUR ---
PT EASILY STARTLES WHEN STAFF ENTERS ROOM. BLOOD PRESSURES REFLECTIVE OF ANXIOUSNESS. PT MEDICATED WITH 0.5 MG XANAX.
[2024-01-29] VITALS: BP 121/69
[2024-01-29 04:00] VITALS: BP 120/91
[2024-01-29 04:17] LABS: BASOPHILS ABSOLUTE AUTO 0.05 K/mm3 (0.00-0.23); BASOPHILS PERCENT AUTO 1 % (0-2); EOSINOPHILS ABSOLUTE AUTO 0.09 K/mm3 (0.00-0.68); EOSINOPHILS PERCENT AUTO 1 % (0-6); Hematocrit 36.4 % (33.0-51.0); Hemoglobin 11.9 g/dL (11.5-16.0); IMMATURE GRAN ABSOLUTE AUTO 0.13 K/mm3 (0.00-0.10); IMMATURE GRAN PERCENT AUTO 2 % (0-1); LYMPHOCYTES ABSOLUTE AUTO 1.03 K/mm3 (0.84-5.20); LYMPHOCYTES PERCENT AUTO 12 % (21-46); MONOCYTES ABSOLUTE AUTO 0.85 K/mm3 (0.16-1.47); MONOCYTES PERCENT AUTO 10 % (4-13); Mean Corpuscular HGB 32.1 pg (26.0-34.0); Mean Corpuscular HGB Conc 32.7 g/dL (31.5-36.5); Mean Corpuscular Volume 98 fL (80-100); Mean Platelet Volume 10.1 fL (9.1-12.4); NEUTROPHILS ABSOLUTE AUTO 6.24 K/mm3 (1.96-9.15); NEUTROPHILS PERCENT AUTO 74 % (41-73); Platelet Count 269 K/mm3 (150-400); RDW Coefficient Variation 14.2 % (11.7-14.2); RDW Standard Deviation 51.5 fL (35.1-46.3); Red Blood Cell Count 3.71 M/mm3 (3.80-5.20); White Blood Cell Count 8.39 K/mm3 (4.00-11.30)
[2024-01-29] MEDS ORDERED: Dose Adjust by Pharmacy XX STA ×2 (05:41→13:03)
[2024-01-29 07:57] VITALS: BP 118/77
--- NOTE | 2024-01-29 10:13 | NUR ---
ASSUMPTION OF CARE: PT ALERT AND ORIENTED, ANXIOUS AT TIMES, COOPERATIVE WITH CARE. SKIN INTACT, NO BREAKDOWN NOTED. SBP STABLE, AFIB, HR IN THE 90's-100's, SBP 120'S, DENIES CP/PRESSURE, NUMB/TINGLING. +BS, MODERATE DISTENTION, PT WITH MODERATE ABD PAIN, MEDICATED PER EMAR, PER REPORT LAST BM 01/28/24. HEPARIN GTT RUNNING PER ORDERS. ALMA DELIA PG, MARQUIS PG AND R FA PIV. PT UP AND AMBULATING AROUND UNIT WITH FAMILY, PT TOLERATED WELL, DENIED SOB. PT DENIES ANY QUESTIONS AT THIS TIME, WILL MONITOR PATIENT.
[2024-01-29 11:33] VITALS: BP 135/91
[2024-01-29 15:09] VITALS: BP 121/94
--- NOTE | 2024-01-29 18:03 | NUR ---
SHIFT SUMMARY PT ALERT AND ORIENTED, ANXIOUS BUT COOPERATIVE TO CARE, SBP STABLE, HR IN THE 90'S-100'S, 120'S-130'S WITH EXERTION, DENIES CP/PRESSURE. O2 >93% ON RA. +BS, PT CONTINUES TO HAVE ABDDOMINAL PAIN, RELIEF WITH MEDICATION, MEDICATING PER EMAR. HEPARIN GTT RUNNING PER ORDERS, NEXT PTT AT 1800. CONTINUE ABX AND PAIN MANAGMENT. NO ACUTE CHANGES T/O SHIFT, WILL CONTINUE TO MONITOR, WILL REPORT TO AIRCRAFT ASSEMBLER RN.
[2024-01-29] MEDS ORDERED: Clarify Drug Order XX ONE (19:05)
[2024-01-29 20:00] VITALS: BP 137/99
[2024-01-29] MEDS ORDERED: OxyCODONE HCL 5 MG TAB PO PRN (20:50)
[2024-01-30 00:30] VITALS: BP 136/76
[2024-01-30 01:05] LABS: Hematocrit 35.4 % (33.0-51.0); Hemoglobin 11.8 g/dL (11.5-16.0); Mean Platelet Volume 9.9 fL (9.1-12.4); Platelet Count 292 K/mm3 (150-400)
[2024-01-30 01:36] LABS: Bun/Creatinine Ratio 9.8 (12.0-20.0); Calcium, Blood 8.6 mg/dL (8.5-10.1); Creatinine, Blood 1.02 mg/dL (0.40-1.00); Potassium, Blood 4.1 mmol/L (3.5-5.5)
[2024-01-30] MEDS ORDERED: Clarify Drug Order XX ONE (02:00)
[2024-01-30 04:30] VITALS: BP 139/89
[2024-01-30] MEDS ORDERED: Liothyronine Sodium 5 MCG Tab PO SCH (06:00)
--- NOTE | 2024-01-30 06:05 | NUR ---
SHIFT SUMMARY PT A&O X4; VSS - SBP IN 130'S, AFIB WITH RATE IN 100 - 1 TEENS, INCREASING TO 120'S WITH ACTIVITY, AFEBRILE, SPO2 WNL ON RA. NO ACUTE EVENTS OVERNIGHT. NO EVENTS OF CP/PRESSURE, DIZZINESS, PALPITATIONS, N/V, DYSPNEA. PT ANXIOUS ON AND OFF T/O THE NIGHT, PM XANAX PER EMAR WITH GOOD RELIEF. BS PRESENT AND PT REPORTS HAD A FEW BM'S YESTERDAY; SMALL, SOFT, UNFORMED BUT NO CONCERNS. NO BM THIS SHIFT. PT UP TO RESTROOM IND, VOIDING WITHOUT DIFFICULTY APPROX 1950 MLS UOP. TOLERATING WATER INTAKE WITH NO COMPLAINTS OR CONCERNS. PT WITH PAIN TO ABD 6-7/10, PT NOT WANTING TO TAKE DILAUDID MUCH, TYLENOL NOT PROVIDING RELIEF FOR PT. RESIDENT NOTIFIED, NEW ORDERS FOR 5 MG OXICODONE PER EMAR WITH MINIMAL RELIEF FOR PT. REPORTS PAIN 4-5/10 WITH MEDICATION. PT MAY NEED BETTER PAIN MANAGEMENT AND VERBALIZES POSSIBLE NEED FOR SOMETHING DIFFERENT. THIS RN WILL UPDATE AND NOTIFY ONCOMING RN. HEPARIN INFUSING PER EMAR. ABX PER MAR. ABLE TO MAKE NEEDS KNOWN, CALL LIGHT IN REACH.
[2024-01-30] MEDS ORDERED: Simethicone 80 MG Chew PO PRN (07:40)
[2024-01-30 07:47] VITALS: BP 129/82
[2024-01-30] MEDS ORDERED: MetroNIDAZOLE 500 MG Tab PO SCH (14:00)
[2024-01-30 15:53] VITALS: BP 128/96
[2024-01-30] MEDS ORDERED: Apixaban 5 MG Tab PO SCH (16:00)
--- NOTE | 2024-01-30 18:16 | NUR ---
PT SUMMARY; PT TRANSITIONED TO MEDICAL STATUS WITH TELE. NO ACUTE CHANGE FOR THE SHIFT, PAIN MANAGED PER EMAR, PT HAS BEEN AMBULATING IN THE ROOM AND AROUND THE UNIT, PT REPORTS PASSING GAS BUT NO BM TODAY, BT PRESENT ON ALL QUADS. TENDERNESS ON LLQ. REPEAT ABD CT SHOWED STABLE ABSCESS 2.8CM. DR LAZAR STOPPED BY AND SAW PT TODAY AND MADE AWARE OF THE RESULT OF THE CT SCAN. PT FOR POSSIBLE DC IN AM IF NO CHANGES. PT TOLERATING FULL LIQUID DIET AT THIS TIME, FAMILY IN TO VISIT THIS AFTERNOON CELEBRATED PT'S BDAY IN THE ROOM. VITALS HAS BEEN STABLE. ELIQUIS STARTED THIS AFTERNOON. NO OTHER ISSUES ENCOUNTERED FOR THE SHIFT, CALL LIGHTS IN REACH WILL REPORT TO ONCOMING SHIFT
[2024-01-30 20:30] VITALS: BP 145/102
[2024-01-30] MEDS ORDERED: Ciprofloxacin 500 MG Tab PO SCH (21:00)
[2024-01-31] VITALS: BP 160/105
[2024-01-31 00:20] VITALS: BP 140/102
[2024-01-31 03:06] VITALS: BP 138/103
[2024-01-31 03:21] LABS: BASOPHILS ABSOLUTE AUTO 0.04 K/mm3 (0.00-0.23); BASOPHILS PERCENT AUTO 1 % (0-2); EOSINOPHILS ABSOLUTE AUTO 0.06 K/mm3 (0.00-0.68); EOSINOPHILS PERCENT AUTO 1 % (0-6); Hematocrit 37.6 % (33.0-51.0); Hemoglobin 12.4 g/dL (11.5-16.0); IMMATURE GRAN ABSOLUTE AUTO 0.09 K/mm3 (0.00-0.10); IMMATURE GRAN PERCENT AUTO 1 % (0-1); LYMPHOCYTES ABSOLUTE AUTO 0.92 K/mm3 (0.84-5.20); LYMPHOCYTES PERCENT AUTO 11 % (21-46); MONOCYTES ABSOLUTE AUTO 0.81 K/mm3 (0.16-1.47); MONOCYTES PERCENT AUTO 9 % (4-13); Mean Corpuscular HGB 31.8 pg (26.0-34.0); Mean Corpuscular Volume 96 fL (80-100); Mean Platelet Volume 10.1 fL (9.1-12.4); NEUTROPHILS ABSOLUTE AUTO 6.68 K/mm3 (1.96-9.15); NEUTROPHILS PERCENT AUTO 78 % (41-73); Platelet Count 295 K/mm3 (150-400); RDW Coefficient Variation 14.3 % (11.7-14.2); RDW Standard Deviation 50.9 fL (35.1-46.3)
[2024-01-31 03:36] LABS: Albumin, Blood 2.6 g/dL (3.4-5.0); Anion Gap 12 mmol/L (3-11); Blood Urea Nitrogen 9 mg/dL (8-24); Bun/Creatinine Ratio 9.2 (12.0-20.0); CO2, Blood 23 mmol/L (21-32); Calcium, Blood 8.7 mg/dL (8.5-10.1); Chloride, Blood 110 mmol/L (98-108); Creatinine, Blood 0.98 mg/dL (0.40-1.00); Glomerular Filtration Rate 62 (60-); Glucose, Blood 94 mg/dL (70-99); Phosphorus, Blood 3.6 mg/dL (2.5-4.9); Potassium, Blood 3.9 mmol/L (3.5-5.5); Sodium, Blood 141 mmol/L (136-145)
--- NOTE | 2024-01-31 06:21 | NUR ---
SHIFT SUMMARY PT A&O X4, VSS; ALTHOUGH DBP ELEVATED IN 100'S CONSISTENLY T/O NIGHT. SBP 140 - 160'S, REMAINS IN AFIB WITH HR IN 1 TEENS - 120'S. HR INCREASING WITH ACTIVITY, AND TOUCHING UP INTO 140 - 150'S. PT ENDORSES PALPITATIONS, DENIES CP/PRESSURE, DYSPNEA, N/V, DIZZINESS. AFEBRILE, SPO2 GREATER THAN 97% ON RA. PAIN 5-6/10, MEDICATED WITH PAIN MEDICATION X2 THIS SHIFT WITH MODERATE RELIEF. PT DENIES BM THIS SHIFT, BUT REPORTS IS PASSING GAS. PT TOLERATING PO INTAKE (WATER). PT INDEPENDENT TO RESTROOM, WITH OVER 2000 MLS UOP. PT ANXIOUS AT BEGINNING OF SHIFT, XANAX PER EMAR WITH MODERATE EFFECT. PT REPORTS FEELING "WORRIED" ABOUT EVERYTHING AND ABOUT HEALTH. PT DOES NOT WANT TO "END UP ABCK IN THE HOSPITAL". PT EXPRESSES WORRY ABOUT "BLOCKAGE OR SOMETHING GOING ON". PT ABLE TO MAKE NEEDS KNOWN, CALL LIGHT IN REACH. WILL UPDATE ONCOMING RN.
[2024-01-31] MEDS ORDERED: dilTIAZem HCL 30 MG TAB PO SCH (07:45)
--- NOTE | 2024-01-31 08:16 | NUR ---
AT BEDSIDE: CAME TO BEDSIDE, TALKED WITH THE PATIENT ABOUT STARTING A NEW MEDICATION DILITAZEM FOR HER HEART RATE, STATED PLAN IS STILL TO DISCHARGE TODAY. DAUGHTER AT BEDSIDE ALSO AND WAS ABLE TO ASK QUESTIONS. ORDERS WERE PLACED.
[2024-01-31 08:31] VITALS: BP 127/113
--- NOTE | 2024-01-31 08:54 | NUR ---
AT BEDSIDE: DR. LAZAR CAME TO BEDSIDE AND CHATTED WITH PATIENT. WOULD LIKE TO SEE HER THE 16TH OF THIS MONTH AT 2PM OUTPATIENT.
[2024-01-31] MEDS ORDERED: Calcium Carbon500 MG PO (11:15)
[2024-01-31] MEDS ORDERED: CIPR500 PO (11:17)
[2024-01-31] MEDS ORDERED: DILT30 PO (11:18)
[2024-01-31] MEDS ORDERED: METR500 PO (11:18)
[2024-01-31] MEDS ORDERED: OXAYDO5 M1 PO (11:20)
[2024-01-31] MEDS ORDERED: VISBIOME 112.51 EACH PO (11:21)
[2024-01-31] MEDS ORDERED: LIOT5 PO (11:22)
[2024-01-31] MEDS ORDERED: MIRALAX17 GM PO (11:33)
--- NOTE | 2024-01-31 11:53 | NUR ---
DISCHARGE SUMMARY: PT A&OX4 AND ACTIVE IN HER CARE. SATTING > 92% ON ROOM AIR, WAS ON TELE SHOWING AFIB WITH RATE 80-90'S. BLOOD PRESSURE HAS BEEN STABLE. PATIENT WAS PICKED UP BY NEIGHBOR AND WHEELED OUT VIA WHEELCHAIR WITH ALL HER PERSONAL BELONGINGS AND DISCHARGE PACKET. WENT OVER NEW MEDICATIONS ADDED, TO FOLLOWUP WITH [facility] OUTPATIENT THE January, AND TO CALL TO MAKE AN APPOINTMENT WITH HER PRIMARY CARE PROVIDER IN TWO WEEKS. TELE WAS TAKEN OFF AND POWERGLIDES WERE REMOVED.
[2024-02-02 13:37] LABS: MYELOPEROXIDASE (MPO) AB,IGG 2 AU/mL (0-19); SERINE PROTEINASE 3 PR3 AB,IGG 0 AU/mL (0-19)
== END 2024-01-31 11:48 | disposition home or self-care (01) | DRG 871 ==
LOC: ER 20:08 → PCU 01-24 05:29
PROVIDERS: Emergency Medicine; Family Medicine; Internal Medicine; Internal Medicine Nephrology; ADMIT Student in an Organized Health Care Education/Training Program
DX: A41.9 Sepsis, unspecified organism (principal); K65.1 Peritoneal abscess; K57.20 Diverticulitis of large intestine with perforation and abscess without bleeding; I48.4 Atypical atrial flutter; E87.1 Hypo-osmolality and hyponatremia; I47.20 Ventricular tachycardia, unspecified; D84.9 Immunodeficiency, unspecified; K56.609 Unspecified intestinal obstruction, unspecified as to partial versus complete obstruction; I48.0 Paroxysmal atrial fibrillation; D63.1 Anemia in chronic kidney disease; I12.9 Hypertensive chronic kidney disease with stage 1 through stage 4 chronic kidney disease, or unspecified chronic kidney disease; N18.2 Chronic kidney disease, stage 2 (mild); N28.1 Cyst of kidney, acquired; I77.89 Other specified disorders of arteries and arterioles; E03.9 Hypothyroidism, unspecified; E88.09 Other disorders of plasma-protein metabolism, not elsewhere classified; E78.00 Pure hypercholesterolemia, unspecified; Z95.0 Presence of cardiac pacemaker; Z88.8 Allergy status to other drugs, medicaments and biological substances; Z79.899 Other long term (current) drug therapy; Z98.890 Other specified postprocedural states; Z79.891 Long term (current) use of opiate analgesic; Z79.01 Long term (current) use of anticoagulants; Z87.891 Personal history of nicotine dependence
CPT/HCPCS: 36415; 74176; 74177; 80048; 80053; 80069; 81001; 82947; 83516; 83605; 83690; 83735; 84439; 84443; 84481; 84484; 85014; 85018; 85025; 85049; 85520; 85610; 85730; 87040; 87086; 92953; 93005; 93010; 94760; 94762; 96361; 96365-59; 96366; 96368; 96375; 97162; 97165; 97535; 99285-25; A9270; C1751; J0282; J1170; J1644; J2405; J2470; J2543; J3475; J3480; J7050; J7060; J7120; J7517; Q9967

== ENCOUNTER 2024-02-29 16:11 | Inpatient (IN) | payer MEDICARE, BC ==
[~2024-02-29] VITALS: Ht 172.7 cm; Wt 83.1 kg
[~2024-02-29 16:11] MED LIST changes: +CATAPRES0.1 MG PO; +CIPR500 PO; +Calcium Carbon500 MG PO; +DILT30 PO; +LIOT5 PO; +METO50ER PO; +MIRALAX17 GM PO; +OXAYDO5 M1 PO; +VISBIOME 112.51 EACH PO
[2024-02-29] MEDS ORDERED: propofoL 20 ML IV SCH (16:45)
[2024-02-29] MEDS ORDERED: NS 1,000 ML IV ONE (16:58)
[2024-02-29 17:10] LABS: BASOPHILS ABSOLUTE AUTO 0.09 K/mm3 (0.00-0.23); BASOPHILS PERCENT AUTO 1 % (0-2); EOSINOPHILS ABSOLUTE AUTO 0.13 K/mm3 (0.00-0.68); EOSINOPHILS PERCENT AUTO 1 % (0-6); Hemoglobin 14.7 g/dL (11.5-16.0); IMMATURE GRAN ABSOLUTE AUTO 0.03 K/mm3 (0.00-0.10); IMMATURE GRAN PERCENT AUTO 0 % (0-1); LYMPHOCYTES ABSOLUTE AUTO 2.38 K/mm3 (0.84-5.20); LYMPHOCYTES PERCENT AUTO 24 % (21-46); MONOCYTES ABSOLUTE AUTO 1.24 K/mm3 (0.16-1.47); MONOCYTES PERCENT AUTO 13 % (4-13); Mean Corpuscular HGB 31.9 pg (26.0-34.0); Mean Corpuscular HGB Conc 33.4 g/dL (31.5-36.5); Mean Corpuscular Volume 95 fL (80-100); Mean Platelet Volume 11.9 fL (9.1-12.4); NEUTROPHILS ABSOLUTE AUTO 6.05 K/mm3 (1.96-9.15); NEUTROPHILS PERCENT AUTO 61 % (41-73); Platelet Count 264 K/mm3 (150-400); RDW Coefficient Variation 13.3 % (11.7-14.2); RDW Standard Deviation 47.5 fL (35.1-46.3); Red Blood Cell Count 4.61 M/mm3 (3.80-5.20); White Blood Cell Count 9.92 K/mm3 (4.00-11.30)
[2024-02-29 17:36] LABS: Magnesium, Blood 2.2 mg/dL (1.6-2.4)
[2024-02-29 17:37] LABS: Albumin, Blood 3.6 g/dL (3.4-5.0); Bilirubin, Total 0.7 mg/dL (0.1-1.0); Bun/Creatinine Ratio 21.7 (12.0-20.0); Calcium, Blood 9.4 mg/dL (8.5-10.1); Creatinine, Blood 1.2 mg/dL (0.40-1.00); Globulin, Blood 3.7 g/dL (2.2-4.0); Potassium, Blood 4.1 mmol/L (3.5-5.5); Total Protein, Blood 7.3 g/dL (6.4-8.2)
[2024-02-29] MEDS ORDERED: Diltiazem HCl 5 MG / ML 5ML Vial IV ONE (17:40)
[2024-02-29] MEDS ORDERED: Furosemide 10 MG / ML 2ML Vial IV ONE (18:00)
[2024-02-29] MEDS ORDERED: REMERON1510 PO (19:02)
[2024-02-29] MEDS ORDERED: FLU VACC TS2024-25(6MOS UP)/PF 45 MCG/0.5 ML SYRINGE IM SCH (19:05)
[2024-02-29] MEDS ORDERED: Ondansetron HCl 2 MG / ML 2ML Vial IV PRN (19:05)
[2024-02-29] MEDS ORDERED: ALPRAZolam 0.25 MG Tab PO PRN (19:25)
[2024-02-29] MEDS ORDERED: Metoprolol Succinate 50 MG TABCR PO SCH (20:00)
[2024-02-29] MEDS ORDERED: ALPRAZolam 0.25 MG Tab PO ONE (20:00)
[2024-02-29] MEDS ORDERED: Apixaban 5 MG Tab PO SCH (20:00)
[2024-02-29 20:15] LABS: Bicarbonate Venous 20.6 mmol/L (24.0-30.0); PCO2 Venous 36.5 mmHg (38-42); pH Blood Venous 7.36 (7.34-7.37)
[2024-02-29 20:30] VITALS: BP 116/92
[2024-02-29] MEDS ORDERED: Docusate Sodium 100 MG Cap PO SCH (21:00)
[2024-02-29] MEDS ORDERED: Mycophenolate Mofetil 250 MG Cap PO SCH (21:00)
[2024-02-29] MEDS ORDERED: MAGNESIUM250 M1 PO (21:32)
[2024-02-29 23:18] VITALS: BP 113/91
[2024-03-01] MEDS ORDERED: Lidocaine 4% 1 Patch TOP ONE (00:15)
[2024-03-01 04:00] VITALS: BP 111/84
[2024-03-01 04:08] LABS: BASOPHILS ABSOLUTE AUTO 0.08 K/mm3 (0.00-0.23); BASOPHILS PERCENT AUTO 1 % (0-2); EOSINOPHILS ABSOLUTE AUTO 0.12 K/mm3 (0.00-0.68); EOSINOPHILS PERCENT AUTO 2 % (0-6); Hematocrit 39.8 % (33.0-51.0); Hemoglobin 13.3 g/dL (11.5-16.0); IMMATURE GRAN ABSOLUTE AUTO 0.04 K/mm3 (0.00-0.10); IMMATURE GRAN PERCENT AUTO 1 % (0-1); LYMPHOCYTES ABSOLUTE AUTO 1.83 K/mm3 (0.84-5.20); LYMPHOCYTES PERCENT AUTO 26 % (21-46); MONOCYTES ABSOLUTE AUTO 0.99 K/mm3 (0.16-1.47); MONOCYTES PERCENT AUTO 14 % (4-13); Mean Corpuscular HGB 31.7 pg (26.0-34.0); Mean Corpuscular HGB Conc 33.4 g/dL (31.5-36.5); Mean Corpuscular Volume 95 fL (80-100); Mean Platelet Volume 11.9 fL (9.1-12.4); NEUTROPHILS ABSOLUTE AUTO 3.94 K/mm3 (1.96-9.15); NEUTROPHILS PERCENT AUTO 56 % (41-73); Platelet Count 208 K/mm3 (150-400); RDW Coefficient Variation 13.2 % (11.7-14.2); RDW Standard Deviation 45.7 fL (35.1-46.3); Red Blood Cell Count 4.19 M/mm3 (3.80-5.20)
[2024-03-01 04:27] LABS: Albumin, Blood 3.2 g/dL (3.4-5.0); Albumin/Globulin Ratio 1.1 (0.8-1.8); Bilirubin, Total 1.1 mg/dL (0.1-1.0); Bun/Creatinine Ratio 21.7 (12.0-20.0); Calcium, Blood 8.9 mg/dL (8.5-10.1); Creatinine, Blood 1.15 mg/dL (0.40-1.00); Magnesium, Blood 1.9 mg/dL (1.6-2.4); Potassium, Blood 3.5 mmol/L (3.5-5.5); Total Protein, Blood 6.2 g/dL (6.4-8.2)
[2024-03-01] MEDS ORDERED: Liothyronine Sodium 5 MCG Tab PO SCH (06:00)
[2024-03-01] MEDS ORDERED: Levothyroxine Sodium 0.137 MG Tab PO SCH (06:00)
--- NOTE | 2024-03-01 08:00 | NUR ---
EOS: INFUSING AMIODARONE IV AT HALF RATE. PATIENT A/O X 4. NO SIGNIFICANT CHANGES FROM ADMISSION ASSESSMENT. STILL DENIES CHEST PAIN PRESSURE OR SOB. DOES HAVE BURN FROM CARDIOVERSION ATTEMPTS IN THE ED. LIDOCAINE PATCH PLACED ONCE I WAS ABLE TO SPEAK TO HOSPITALIST. PATIENT HR IMPROVED TO BE LOW 80 AFLUTTER, VPACED RARELY, AND OCCASSION PVC'S. PATIENT EXERTION DYSPNEA IMPROVED. VSS. AFEBRILE. VOIDING WELL. LUNGS SOUNDS IMPROVED THROGH THE NIGHT. PALLIATIVE CARE AND ROAD DESIGN DRAFTSPERSON CONSULT PLACED FOR POLST, AND LOW RESIDUAL DIET DUE TO RECENT HOSITALIZATION WITH PATIENT ENDORSED PERFERATION TO BOWEL, AND DIVERTICULITIS. DR. NICE WAS FOLLOW UP PHYSICIAN IN CARE OUTPATIENT OF PATIENT. PATIENT IS PLEASANT USES THE CALL LIGHT APPROPRIATELY, WORE THE SCD'S FOR APPROXIMATELY 8.5 HOURS. BOTH IV'S PATENT NO BM FOR SHIFT. NO ACUTE CONCERNS FROM EITHER THE PATIENT OR THIS RN.
[2024-03-01 08:15] VITALS: BP 122/95
[2024-03-01] MEDS ORDERED: Furosemide 10 MG/ML 4ML Vial IV SCH (09:00)
[2024-03-01] MEDS ORDERED: Polyethylene Glycol 3350 17 gm PO SCH (09:00)
[2024-03-01 11:56] VITALS: BP 111/82
[2024-03-01 15:19] VITALS: BP 111/76
--- NOTE | 2024-03-01 17:04 | NUR ---
SHIFT SUMMARY PT A&Ox4, CALLS AND COMMUNICATES NEEDS APPROPRIATELY. SBA/IND IN ROOM. CONTINENT OF URINE, NO BM THS SHIFT. BP STBLE, AFIB 100-120's, DENIES CP/PRESSURE. AMIO gtt INFUSING PER EMAR. SpO2> 92% RA, DENIES SOB. NO C/O PAIN. RESTED COMFORTABLY IN ROOM THROUGHOUT SHIFT. NO OTHER EVENTS, WILL REPORT TO ONCOMING RN.
[2024-03-01 19:57] VITALS: BP 97/71
[2024-03-01 23:26] VITALS: BP 116/87
[2024-03-02 04:46] VITALS: BP 113/83
--- NOTE | 2024-03-02 06:07 | NUR ---
SHIFT SUMMARY PATIENT ALERT, ORIENTED x4. ABLE TO MAKE NEEDS KNOWN TO STAFF. BP STABLE. TELE READING AFIB/FLUTTER 90-110s, OCCASIONALLY 120s WITH ACTIVITY. YAELO GTT COMPLETED THIS SHIFT. PATIENT ASYMPTOMATIC TO HR. ON RA WITH SPO2 >90%. PATIENT AMBULATING IN ROOM INDEPENDENTLY. TOLERATING PO. ADEQUATE OUTPUT DURING THE NIGHT. PATIENT HOPEFUL TO RETURN HOME TODAY. NO OTHER ACUTE CHANGES THIS SHIFT, WILL REPORT TO DAY SHIFT RN.
[2024-03-02 08:39] VITALS: BP 106/91
[2024-03-02] MEDS ORDERED: Amiodarone HCl 200 MG Tab PO SCH (09:00)
[2024-03-02] MEDS ORDERED: Digoxin 0.25 MG/ML 2ML Amp IV ONE (09:20)
[2024-03-02 11:54] VITALS: BP 98/78
[2024-03-02 15:09] VITALS: BP 108/70
[2024-03-02] MEDS ORDERED: Digoxin 0.25 MG/ML 2ML Amp IV SCH (15:30)
--- NOTE | 2024-03-02 18:04 | NUR ---
SHIFT SUMMARY PT IS A&0 X4, IND IN ROOM/ EDUCATED TO CALL IF FEELINGS OF DIZZINESS OR FEELING THE NEED FOR ASSISTANCE TO TRANSFER, OBEYS COMMANDS AND ABLE TO MAKE NEEDS KNOWN, CALL LIGHT IN REACH. PT DENIES SOB, NO SIGNS OF RESPRITORY DISTRESS T/O THIS SHIFT, SPO2 GREATER THAN 95%. CONTINOUS CARDIAC MONITORING, HR 90'S-110'S T/O MOST OF SHIFT, DID TOUCH INTO THE 130'S WITH ACIVITY, AFTER SECOND DOUSE OF DIGOXIN P HR 80'S-90'S AT REST, RHYTHM IS AFIB WITH OCCATIONAL PACED BEATS, DENIES CHEST P/P T/O THIS SHIFT. PT DENIES N/V T/O THIS SHIFT, PT REPORTS HAVING TWO SMALL FIRM BM THIS SHIFT, ASKED PT IF THEY FELT LIKE THEY NEED SOMETHING MORE FOR BOWEL CARE AND PT DENIED ASKING TO WAIT. DR. FAN AND HORTENCIA ROUNED ON THIS PT IN THE AM, NEW ORDER PLACED.
[2024-03-02 20:51] VITALS: BP 127/78
[2024-03-03 00:46] VITALS: BP 115/81
[2024-03-03 03:42] VITALS: BP 127/80
--- NOTE | 2024-03-03 05:32 | NUR ---
SHIFT SUMMARY PATIENT ALERT, ORIENTED x4. ABLE TO MAKE NEEDS KNOWN TO STAFF. PATIENT INDEPENDENT IN THE ROOM. BP STABLE. ON RA WITH SPO2 >90%. TELE READING VPACED PER GYNECOLOGY TEACHER 80s. PATIENT AMBULATING INTO BATHROOM INDEPENDENTLY, ADEQUATE OUTPUT DURING THE NIGHT. PATIENT HOPEFUL TO DISCHARGE TODAY. NO OTHER CHANGES THIS SHIFT, WILL REPORT TO DAY SHIFT RN.
[2024-03-03 06:01] LABS: Bun/Creatinine Ratio 20.3 (12.0-20.0); Calcium, Blood 8.8 mg/dL (8.5-10.1); Creatinine, Blood 1.18 mg/dL (0.40-1.00)
[2024-03-03 07:12] VITALS: BP 127/85
[2024-03-03] MEDS ORDERED: DIGOX125 MC1 PO (09:26)
[2024-03-03] MEDS ORDERED: PACERONE100 M1 PO (09:26)
[2024-03-03] MEDS ORDERED: FURO20 PO (09:28)
[2024-03-03] MEDS ORDERED: Digoxin 0.125 MG Tab PO ONE (10:10)
--- NOTE | 2024-03-03 10:45 | NUR ---
discharge education this rn went over dischare education with the patient. this rn went over new medications and when to start medications and instructions for each new medication. patient used teach back method for confirmation of understanding. this rn discussed follow up appointments with primary care provider, golf course laborer, and millstone cleaner. patient verbalized understanding. this rn discussed cardiac ablation and patient verbalized understanding of follow up appointments for this. iv removed and tele removed. patient awaiting for ride. all belongings gathered.
== END 2024-03-03 11:08 | disposition home or self-care (01) | DRG 308 ==
LOC: ER 16:11 → PCU 16:12
PROVIDERS: Emergency Medicine; Family Medicine; Nurse Practitioner Acute Care; ADMIT Student in an Organized Health Care Education/Training Program
PROC: 5A2204Z Restoration of Cardiac Rhythm, Single (ICD-10-PCS; principal; 2024-02-29)
DX: I48.92 Unspecified atrial flutter (principal); I50.33 Acute on chronic diastolic (congestive) heart failure; I13.0 Hypertensive heart and chronic kidney disease with heart failure and stage 1 through stage 4 chronic kidney disease, or unspecified chronic kidney disease; N17.9 Acute kidney failure, unspecified; M30.0 Polyarteritis nodosa; N18.2 Chronic kidney disease, stage 2 (mild); I48.91 Unspecified atrial fibrillation; I49.5 Sick sinus syndrome; I47.20 Ventricular tachycardia, unspecified; E03.9 Hypothyroidism, unspecified; E78.00 Pure hypercholesterolemia, unspecified; K21.9 Gastro-esophageal reflux disease without esophagitis; I73.9 Peripheral vascular disease, unspecified; N28.1 Cyst of kidney, acquired; R41.89 Other symptoms and signs involving cognitive functions and awareness; I36.1 Nonrheumatic tricuspid (valve) insufficiency; Z79.01 Long term (current) use of anticoagulants; Z95.0 Presence of cardiac pacemaker; Z87.19 Personal history of other diseases of the digestive system; Z87.820 Personal history of traumatic brain injury; Z88.8 Allergy status to other drugs, medicaments and biological substances; Z79.890 Hormone replacement therapy; Z79.899 Other long term (current) drug therapy
CPT/HCPCS: 36415; 71045; 80048; 80053; 82803; 83605; 83735; 83880; 84439; 84443; 84481; 84484; 85025; 92960; 93005; 93010; 93308; 93321; 96365-59; 96375-59; 96376; 99152; 99285-25; A9270; G0378; J0282; J1160; J1940; J2704; J7030; J7060; J7517

== ENCOUNTER → 2024-11-29 | Outpatient (CLI) | payer MEDICARE, BC ==
[~2024-11-29] MED LIST changes: +DIGOX125 MC1 PO; +DOC250 PO; +FURO20 PO; +MAGNESIUM250 M1 PO; +PACERONE100 M1 PO; +REMERON1510 PO
[2024-11-29 11:29] LABS: BASOPHILS ABSOLUTE AUTO 0.07 K/mm3 (0.00-0.23); BASOPHILS PERCENT AUTO 1 % (0-2); EOSINOPHILS ABSOLUTE AUTO 0.10 K/mm3 (0.00-0.68); EOSINOPHILS PERCENT AUTO 2 % (0-6); Hematocrit 40.2 % (33.0-51.0); Hemoglobin 13.0 g/dL (11.5-16.0); IMMATURE GRAN ABSOLUTE AUTO 0.02 K/mm3 (0.00-0.10); IMMATURE GRAN PERCENT AUTO 0 % (0-1); LYMPHOCYTES ABSOLUTE AUTO 0.93 K/mm3 (0.84-5.20); LYMPHOCYTES PERCENT AUTO 15 % (21-46); MONOCYTES ABSOLUTE AUTO 0.62 K/mm3 (0.16-1.47); MONOCYTES PERCENT AUTO 10 % (4-13); Mean Corpuscular HGB Conc 32.3 g/dL (31.5-36.5); Mean Corpuscular Volume 98 fL (80-100); NEUTROPHILS ABSOLUTE AUTO 4.35 K/mm3 (1.96-9.15); NEUTROPHILS PERCENT AUTO 72 % (41-73); NRBC ABSOLUTE 0.00 K/mm3 (0.00-0.02); NRBC Auto 0.0 /100 WBC (0.0-0.2); Platelet Count 284 K/mm3 (150-400); RDW Coefficient Variation 12.7 % (11.7-14.2); RDW Standard Deviation 45.6 fL (35.1-46.3)
[2024-11-29 11:51] LABS: C-REACTIVE PROTEIN, EXT RANGE 0.83 mg/dL (0.000-0.300); Uric Acid, Blood 6.2 mg/dL (2.6-6.0)
== END ==
LOC: LAB 10:58 → LAB SHORT 10:58
PROVIDERS: Hospitalist
DX: M79.671 Pain in right foot (principal)
CPT/HCPCS: 84550; 85025; 85651; 86140

== ENCOUNTER → 2024-12-27 | Outpatient (CLI) | payer MEDICARE, BC | LOC: LAB SHORT 14:20 → LAB 14:20 | DX: N30.01 Acute cystitis with hematuria (principal) | CPT/HCPCS: 87077; 87086; 87186 ==

== ENCOUNTER 2025-03-09 09:11 | Day surgery (SDC) | payer MEDICARE, BC | END 2025-03-09 11:48 | disposition home or self-care (01) | LOC: ORSCMMR 09:11 | PROC: 0DJD8ZZ Inspection of Lower Intestinal Tract, Via Natural or Artificial Opening Endoscopic (ICD-10-PCS; principal; 2025-03-09) | DX: K57.30 Diverticulosis of large intestine without perforation or abscess without bleeding (principal); I48.0 Paroxysmal atrial fibrillation; I12.9 Hypertensive chronic kidney disease with stage 1 through stage 4 chronic kidney disease, or unspecified chronic kidney disease; N18.2 Chronic kidney disease, stage 2 (mild); E78.00 Pure hypercholesterolemia, unspecified; E03.9 Hypothyroidism, unspecified; Z95.0 Presence of cardiac pacemaker; Z79.01 Long term (current) use of anticoagulants; Z79.899 Other long term (current) drug therapy ==